=== PATIENT | female | born 1990 | race Caucasian/White ===

== ENCOUNTER → 2019-04-23 | Outpatient (CLI) | payer OTHER ==
--- NOTE | 2019-04-23 13:00 | Diagnostic Imaging Report ---
INDICATION: survey. TECHNIQUE: Multiple real-time grayscale images were obtained over the gravid uterus. COMPARISON: None FINDINGS: There is a single live fetus in a cephalic presentation. heart rate was recorded at 135 bpm. Placenta is anterior. Amniotic fluid index is normal at 15.5 cm. Cervical length is approximately 4.0 cm. survey shows kidneys, bladder and stomach to be unremarkable. brain is unremarkable. There is a four-chamber heart. There is a three-vessel cord with normal insertion. spine is unremarkable. Biometrical measurements are as follows: Biparietal 4.87 cm, age 20 weeks 6 days. Head circumference 17.70 cm, age 20 weeks 2 days. Abdominal circumference 15.57 cm, age 20 weeks 6 days. Femur length 3.35 cm, age 20 weeks 4 days. Sonographic estimate age: 20 weeks 5 days. Sonographic estimated date of delivery: 09/05/19. Estimated Weight: 364 gm (+/- 53 gm). LMP percentile: 78%. heart rate: 135 beats per minute. number: 1 of 1. IMPRESSION: Single live IUP 20 weeks 5 days gestational age. Estimated date of confinement sonographically is 09/05/2019. Dictated by: Dictated on workstation # [id number]
== END ==
LOC: RAD 10:00
PROVIDERS: ATTEND Obstetrics & Gynecology
DX: Z34.82 Encounter for supervision of other normal pregnancy, second trimester (principal); Z3A.20 20 weeks gestation of pregnancy
CPT/HCPCS: 76805

== ENCOUNTER 2019-08-30 12:40 | Inpatient (IN) | payer OTHER ==
[~2019-08-30] VITALS: Ht 182.9 cm; Wt 88.0 kg
[2019-08-30] VITALS (10 sets, daily range): BP systolic 103–132; BP diastolic 59–85
--- NOTE | 2019-08-30 12:45 | NUR ---
CONNER RUSSO presented to unit via ambulatory from ED, accompanied by , with c/o LABOR. CONNER RUSSO weighed, gowned, voided, and to bed. EFHM and TOCO applied, VS taken. CONNER RUSSO oriented to bed controls, call light, TV, heat, and A/C controls.
--- OUTSIDE RECORDS SUMMARY | 2019-08-30 12:46 | XMS REPORT | Continuity of Care Document ---
Author Organization Unknown Address Unknown Phone Unavailable Allergies There is no data. Medications There is no data. Problems Date Dx Coded Attending Type Code Diagnosis Diagnosed By 04/24/2019 MEIR LEE DO, Ot Z34.82 ENCOUNTER FOR SUPRVSN OF NORMAL PREGNANC 04/24/2019 MEIR LEE DO Ot Z3A.20 20 WEEKS GESTATION OF 06/08/2019 MEIR LEE DO, Ot Z34.82 ENCOUNTER FOR SUPRVSN OF NORMAL PREGNANC 06/08/2019 MEIR LEE DO, Ot Z3A.20 20 WEEKS GESTATION OF Procedures There is no data. Results There is no data. Encounters ACCT No. Visit Date/Time Discharge Status Pt. Type Provider Facility Loc./Unit Complaint [id number] 04/23/2019 10:00:00 019 23:59:59 CLS Outpatient MEIR LEE DO [facility] RAD
[2019-08-30] MEDS ORDERED: D5 LR IV SOLUTION 1,000 ML IV SCH (12:51)
[2019-08-30] MEDS ORDERED: MINERAL OIL CONCENTRATE 99.9% 15 ML UDC TOP PRN (13:00)
[2019-08-30 13:42] LABS: BASOPHILS % (AUTO) 0 % (0-10); EOSINOPHILS % (AUTO) 1 % (0-10); HEMATOCRIT 32 % (35-52); HEMOGLOBIN 10.6 G/DL (11.5-16.0); LYMPHOCYTES # (AUTO) 1.8 X 10^3 (1.0-4.0); LYMPHOCYTES % (AUTO) 20 % (12-44); MEAN CORPUSCULAR HEMOGLOBIN 31 PG (25-34); MEAN CORPUSCULAR HGB CONC 34 G/DL (32-36); MEAN CORPUSCULAR VOLUME 91 FL (80-99); MEAN PLATELET VOLUME 10.2 FL (7.4-10.4); MONOCYTES # (AUTO) 0.5 X 10^3 (0.0-1.0); MONOCYTES % (AUTO) 5 % (0-12); NEUTROPHILS # (AUTO) 6.4 X 10^3 (1.8-7.8); NEUTROPHILS % (AUTO) 74 % (42-75); PLATELET COUNT 224 10^3/uL (130-400); RED CELL DISTRIBUTION WIDTH 13.3 % (10.0-14.5); WHITE BLOOD COUNT 8.7 10^3/uL (4.3-11.0)
[2019-08-30] MEDS ORDERED: CATHETER FLUSH 10 ML SYR IV SCH ×2 (14:00→22:00)
[2019-08-30] MEDS ORDERED: OXYTOCIN PRE-MIX DRIP 500 ML IV ONE ×2 (14:13→16:40)
--- NOTE | 2019-08-30 14:36 | History & Physical-OB ---
OB - Chief Complaint & HPI Date/Time Date of Admission: Date of Admission: Aug 30, 2019 at 12:40 Date seen by a Provider: Aug 30, 2019 Time Seen by a Provider: 14:30 Chief Complaint/History Hx : 5 Hx Para: 3 Expected Date of Delivery: Sep 10, 2019 Gestational Age in Weeks: 38 Gestational Age in Days: 3 Other reason for admission: Advanced cervical dilatation of 6-7 cm in office Admission Nurse Assessment Rev: Yes History of Labs A pos Antibody neg RI RPR NR HBsAg NR HIV NR GC neg GBS neg Allergies and Home Medications Allergies Coded Allergies: No Known Drug Allergies (Unverified , 08/30/19) Patient Home Medication List Home Medication List Reviewed: Yes OB - History Hx of Present Care: Yes Ultrasounds: Normal mid trimester US Obstetrical Complications: None Medical Complications: None Delivery History Adverse Rxn to Tranfusion: No Patient Past Medical History n/a Social History/Family History Recent Infectious Disease Expo: No Alcohol Use: Denies Use Recreational Drug Use: No OB - Admission Exam Physical Exam HEENT: NCAT Heart: Rhythm Normal Lungs: Clear Abdomen: Gravid Extremities: Normal Reflexes: Normal Cervical Dilatation: 6cm Effacement: 75% Station: -1 Membranes: Intact Heart Rate: 150's Accelerations: Accelerations Present Decelerations: No Decelerations Short Term Variability: Present Home Appliances Mechanic Variability: Average (6-25) Contractions on Admission: 6-10 Minutes Apart Labs Laboratory Tests Test 08/30/19 13:30 Range/Units White Blood Count 8.7 4.3-11.0 10^3/uL Red Blood Count 3.47 L 4.35-5.85 10^6/uL Hemoglobin 10.6 L 11.5-16.0 G/DL Hematocrit 32 L 35-52 % Mean Corpuscular Volume 91 80-99 FL Mean Corpuscular Hemoglobin 31 25-34 PG Mean Corpuscular Hemoglobin Concent 34 32-36 G/DL Red Cell Distribution Width 13.3 10.0-14.5 % Platelet Count 224 130-400 10^3/uL Mean Platelet Volume 10.2 7.4-10.4 FL Neutrophils (%) (Auto) 74 42-75 % Lymphocytes (%) (Auto) 20 12-44 % Monocytes (%) (Auto) 5 0-12 % Eosinophils (%) (Auto) 1 0-10 % Basophils (%) (Auto) 0 0-10 % Neutrophils # (Auto) 6.4 1.8-7.8 X 10^3 Lymphocytes # (Auto) 1.8 1.0-4.0 X 10^3 Monocytes # (Auto) 0.5 0.0-1.0 X 10^3 Eosinophils # (Auto) 0.0 0.0-0.3 10^3/uL Basophils # (Auto) 0.0 0.0-0.1 10^3/uL OB - Assessment/Plan/Diagnosis Assessment Assessment: active labor Admission Dx 29 yo ,1,0,3 @ 38 weeks Advanced cervical dilatation Hx of precipatous delivery Admission Status: Inpatient Order (span 2 midnights) Reason for Inpatient Admission: Labor at term Plan Plan: Expectant Management (AROM) MEIR LEE DO Aug 30, 2019 14:36
[2019-08-30] MEDS: OXYTOCIN PRE-MIX DRIP 500 ML IV SCH ×3 (16:15→16:50)
[2019-08-30] MEDS ORDERED: TETANUS,DIPTH,PERTUSS P/F (BOOSTRIX) 0.5 ML VIAL IM ONE (16:30)
[2019-08-30] MEDS ORDERED: MEASLES,MUMPS,RUBELLA 1 EA INJ SQ ONE (16:30)
[2019-08-30] MEDS ORDERED: WITCH HAZEL(TUCKS) 40 EA JAR TOP PRN (16:30)
[2019-08-30] MEDS ORDERED: BENZOCAINE/MENTHOL (DERMOPLAST) 60 ML CAN TP PRN (16:30)
--- NOTE | 2019-08-30 16:31 | OB Labor & Delivery Record ---
L&D History Date of Service Date of Service: Aug 30, 2019 History Expected Date of Delivery: Sep 10, 2019 Gestational Age in Weeks: 38 Hx : 5 Hx Para: 3 Complications Events: Routine care Operative Indications (Cesarea: N/A-Vaginal Delivery Intrapartal Events: None L&D Stage1 Stage One Onset of Labor - Date: Aug 30, 2019 Monitors and Tracing Monitor Mode: External Heart Rate: 155 Monitor Accelerations: Uniform Monitor Decelerations: None Station: -1 Soc Analyst Variability: Average (6-10) Short Term Variability: Present Presentation: Vertex Vital Signs VS - Last 72 Hours, by Label 08/30/19 08/30/19 13:10 14:46 Temp 36.6 36.6 Pulse 109 109 Resp 16 16 B/P (MAP) 109/76 (87) Pulse Ox 99 99 O2 Delivery Room Air Room Air Rupture of Membranes Spontaneous Ruture of Membrane: No Amniotic Membrane Rupture Time: 1400 Amniotic Membrane Fluid Desc.: Clear Vaginal Bleeding Description: Normal Show (AROM performed patient at 6 cm and progressed with no augmentation to complete and +2 station) Progress/Notes AROM performed and no other augmentation done L&D Stage2 Stage Two Stage II Date: Aug 30, 2019 Monitors and Tracing Monitor Mode: External Heart Rate: 155 Monitor Decelerations: Variable Skilled Nursing Variability: Average (6-10) Short Term Variability: Present Position: Right Occiput Anterior Presentation: Vertex Cord Descript/Complications Cord Vessel Description: 3 Vessels Delivery Type Infant Delivery Method: Spontaneous Vaginal Anterior Shoulder: Right Episiotomy/Perineal Laceration Laceraction(s)/Extensions: No Condition of Infant Delivery 1 minute Comment: 8 5 minute Comment: 9 Notes Live male weight 9lbs 10 oz Condition of Condition of Infant: Living Exam: No Observed Abnormalities Resuscitation Resuscitation: N/A - Spontaneous Resp L&D Stage3 Stage Three Stage III Date: Aug 30, 2019 Pictocin Pitocin Administration Comment: 30 mu wide open at delivery of placenta Placenta Delivery Placenta Delivery: Spontaneous Delivery Summary Summary Estimated blood loss (mL): 250 Attending at delivery: Meir Lee DO Condition of Delivery Examined: Cervix Examined, Uterus Explored Post Hemorrhage: No Condition of Mother stable Condition of (s) stable MEIR LEE DO Aug 30, 2019 16:31
[2019-08-30] MEDS ORDERED: IBUPROFEN 600 MG (MOTRIN) TAB PO ONE (16:40)
[2019-08-30] MEDS: IBUPROFEN 600 MG (MOTRIN) TAB PO SCH (16:50)
--- NOTE | 2019-08-30 17:45 | NUR ---
1625: Recovery period begins at this time. Fundus firm, midline, 2 below umbilicus, scant bleeding. Pt denies pain. Call light within reach. remains at bedside. FOB holding . 1640: Fundus firm, midline, 2 below umbilicus, light bleeding. Pt denies pain. Call light within reach. Mother infant at this time. 1655: Fundus firm, midline, 2 below umbilicus, light bleeding. Pt denies pain. Call light within reach. Mother at this time. 1710: Fundus firm, midline, 2 below umbilicus, light/moderate bleeding. Pt denies pain. Call light within reach. Mother infant at this time. 1725: Fundus firm, midline, 2 below umbilicus, light bleeding. Pt denies pain. Call light within reach. Mother holding . 1745: Fundus firm, midline, 2 below umbilicus, light bleeding. Pt denies pain. Call light within reach. Mother holding infant. pericare by this RN. Pt transferred to room #312. transferred in crib.
[2019-08-30] MEDS ORDERED: IBUPROFEN 600 MG (MOTRIN) TAB PO SCH (18:00)
--- NOTE | 2019-08-30 19:18 | NUR ---
report given to janice larson
[2019-08-30] MEDS: DOCUSATE SODIUM 100 MG (COLACE) CAP PO SCH (23:36)
[2019-08-30] MEDS: ACETAMINOPHEN 500 MG TAB (TYLENOL) PO SCH (23:36)
[2019-08-31 05:35] VITALS: BP 112/72
[2019-08-31] MEDS: IBUPROFEN 600 MG (MOTRIN) TAB PO SCH ×3 (05:39→18:11)
[2019-08-31] MEDS: ACETAMINOPHEN 500 MG TAB (TYLENOL) PO SCH ×2 (05:39→12:00)
[2019-08-31 06:43] LABS: BASOPHILS % (AUTO) 0 % (0-10); EOSINOPHILS # (AUTO) 0.1 10^3/uL (0.0-0.3); EOSINOPHILS % (AUTO) 1 % (0-10); HEMATOCRIT 29 % (35-52); HEMOGLOBIN 9.8 G/DL (11.5-16.0); LYMPHOCYTES # (AUTO) 1.7 X 10^3 (1.0-4.0); LYMPHOCYTES % (AUTO) 23 % (12-44); MEAN CORPUSCULAR HEMOGLOBIN 31 PG (25-34); MEAN CORPUSCULAR HGB CONC 33 G/DL (32-36); MEAN CORPUSCULAR VOLUME 92 FL (80-99); MEAN PLATELET VOLUME 10.3 FL (7.4-10.4); MONOCYTES # (AUTO) 0.6 X 10^3 (0.0-1.0); MONOCYTES % (AUTO) 8 % (0-12); NEUTROPHILS # (AUTO) 4.9 X 10^3 (1.8-7.8); NEUTROPHILS % (AUTO) 67 % (42-75); PLATELET COUNT 178 10^3/uL (130-400); WHITE BLOOD COUNT 7.3 10^3/uL (4.3-11.0)
--- NOTE | 2019-08-31 07:23 | Postpartum Progress Note ---
Note Note Day # 1 Subjective: Patient is without complaints. Ambulating, voiding. Tolerating a regular diet without nausea or vomiting. Normal lochia. Pain is well controlled with oral pain medications. Objective: Physical Exam: General - Alert and oriented, no apparent distress Abdomen - Soft, appropriately tender to palpation, non-distended, fundus firm at umbilicus Extremities - no edema, negative Govind's bilaterally Assessment: PPD 1 NVD Acute blood loss Plan: Routine care. Encourage breast feeding. Encourage ambulation. Ferrous sulfate supplementation. Plan for discharge today. Vitals - Labs Vital Signs - I&O Vital Signs Date Time Temp Pulse Resp B/P (MAP) Pulse Ox O2 Delivery O2 Flow Rate FiO2 08/31/19 05:35 36.3 67 18 112/72 (85) 98 08/30/19 23:30 37.0 60 18 130/83 (99) 100 08/30/19 20:30 36.8 76 18 123/75 (91) 98 08/30/19 18:00 36.8 77 16 103/59 (74) 100 Room Air 08/30/19 17:26 36.7 83 123/79 (94) 100 Room Air 08/30/19 17:11 78 129/80 (96) 100 Room Air 08/30/19 16:56 75 123/77 (92) 100 Room Air 08/30/19 16:41 75 132/85 (101) 100 Room Air 08/30/19 16:26 73 16 122/76 (91) 100 Room Air 08/30/19 14:46 36.6 109 16 99 Room Air 08/30/19 13:10 36.6 109 16 109/76 (87) 99 Room Air I & O 08/31/19 07:00 Intake Total 1500 ml Balance 1500 ml Labs Laboratory Tests 08/30/19 13:30: White Blood Count 8.7, Red Blood Count 3.47L, Hemoglobin 10.6L, Hematocrit 32L, Mean Corpuscular Volume 91, Mean Corpuscular Hemoglobin 31, Mean Corpuscular Hemoglobin Concent 34, Red Cell Distribution Width 13.3, Platelet Count 224, Mean Platelet Volume 10.2, Neutrophils (%) (Auto) 74, Lymphocytes (%) (Auto) 20, Monocytes (%) (Auto) 5, Eosinophils (%) (Auto) 1, Basophils (%) (Auto) 0, Neutrophils # (Auto) 6.4, Lymphocytes # (Auto) 1.8, Monocytes # (Auto) 0.5, Eosinophils # (Auto) 0.0, Basophils # (Auto) 0.0 08/31/19 06:10: White Blood Count 7.3, Red Blood Count 3.18L, Hemoglobin 9.8L, Hematocrit 29L, Mean Corpuscular Volume 92, Mean Corpuscular Hemoglobin 31, Mean Corpuscular Hemoglobin Concent 33, Red Cell Distribution Width 13.0, Platelet Count 178, Mean Platelet Volume 10.3, Neutrophils (%) (Auto) 67, Lymphocytes (%) (Auto) 23, Monocytes (%) (Auto) 8, Eosinophils (%) (Auto) 1, Basophils (%) (Auto) 0, Neutrophils # (Auto) 4.9, Lymphocytes # (Auto) 1.7, Monocytes # (Auto) 0.6, Eosinophils # (Auto) 0.1, Basophils # (Auto) 0.0 MEIR LEE DO Aug 31, 2019 07:23
[2019-08-31] MEDS ORDERED: FERR325T18 PO (07:25)
[2019-08-31] MEDS ORDERED: ACET-93 PO (07:25)
[2019-08-31] MEDS ORDERED: DCS100C PO (07:25)
[2019-08-31] MEDS ORDERED: IBUP-844 PO (07:25)
--- NOTE | 2019-08-31 07:26 | Discharge Inst-Women's Service ---
Discharge Inst-Women's Serv Depart Medication/Instructions New, Converted or Re-Newed RX: RX on Chart Final Diagnosis PPD 1 NVD Problems Reviewed?: Yes Consults/Follow Up Additional Follow Up: Yes Orders/Referrals Dr. Lee in 6 weeks Activity Activity: Activity as Tolerated Driving Instructions: No Driving for 1 Week NO SMOKING: NO SMOKING Nothing Inside Vagina: No Douching, No [place], No Tampons Diet Discharge Diet: No Restrictions Symptoms to Report to : Bleeding Excessive, Pain Increased, Fever Over 101 Degrees F, Vaginal Bleeding Increase, Questions/Concerns For Any Problems or Questions: Contact Your Physician MEIR LEE DO Aug 31, 2019 07:26
[2019-08-31] MEDS: FERROUS SULF 325 MG (IRON) TAB PO SCH (07:41)
[2019-08-31] MEDS: PRENATAL VITAMIN 1 EA TAB PO SCH (07:42)
[2019-08-31] MEDS: DOCUSATE SODIUM 100 MG (COLACE) CAP PO SCH ×2 (09:20→21:30)
[2019-08-31 09:30] VITALS: BP 119/74
[2019-08-31 14:00] VITALS: BP 120/76
--- NOTE | 2019-08-31 14:26 | NUR ---
REPORT GIVEN TO SANTINO NOLEN
--- NOTE | 2019-08-31 17:06 | NUR ---
D/T current policy in place that pt and visitor may not leave unit, pt unable to curing pickling packer prescriptions if boardered. Dr. Esquivel called and notified, OK to keep as inpatient overnight, but will not round in AM.
[2019-08-31 18:09] VITALS: BP 115/73
--- NOTE | 2019-08-31 19:05 | NUR ---
REPORT RECEIVED AND CARES RESUMED BY THIS NURSE.
[2019-08-31 20:25] VITALS: BP 136/78
--- NOTE | 2019-08-31 20:25 | NUR ---
INITIAL SHIFT ASSESSMENT DONE. VSS. PT DENIES ANY PAIN, C/O'S, OR NEEDS.
--- NOTE | 2019-08-31 22:15 | NUR ---
PT PREPARING TO FEED . DENIES ANY NEEDS.
--- NOTE | 2019-09-01 | NUR ---
PT CONT TO TRY TO SOOTHE FUSSY INFANT. DENIES ANY NEEDS.
--- NOTE | 2019-09-01 01:40 | NUR ---
PT RESTING SOUNDLY. SLEEPING IN OPEN CRIB AT BEDSIDE. NO S/S OF DISTRESS OR DISCOMFORT NOTED.
--- NOTE | 2019-09-01 03:00 | NUR ---
PT CONT TO REST SOUNDLY. NOT AWAKENED AT THIS TIME.
[2019-09-01] MEDS: IBUPROFEN 600 MG (MOTRIN) TAB PO SCH ×2 (03:55→10:05)
--- NOTE | 2019-09-01 03:55 | NUR ---
PT AWAKENED SO THAT MAY BE TAKEN TO [facility] FOR HS CARES. IBUPROFEN ADMINISTERED. VSS.
--- NOTE | 2019-09-01 04:20 | NUR ---
INFANT RETURNED TO MOM'S ROOM IN STABLE CONDITION. MOM WILL FEED.
[2019-09-01 10:04] VITALS: BP 119/75
[2019-09-01] MEDS: FERROUS SULF 325 MG (IRON) TAB PO SCH (10:05)
[2019-09-01] MEDS: PRENATAL VITAMIN 1 EA TAB PO SCH (10:05)
--- NOTE | 2019-09-01 11:10 | NUR ---
Discharge instructions explained, signed and copy to patient. pt verbalized understanding of instructions and denied questions. Prescriptions given and pt denies questions regarding medications.
--- NOTE | 2019-09-01 12:20 | NUR ---
Discharged to home. Ambulates self downstairs to private vehicle with belongings in hand. Accompanied by staff and .
== END 2019-09-01 12:20 | disposition home or self-care (01) | DRG 806 ==
LOC: LDRP 12:40
PROVIDERS: ADMIT Obstetrics & Gynecology; ATTEND Obstetrics & Gynecology
PROC: 10E0XZZ Delivery of Products of Conception, External Approach (ICD-10-PCS; principal; 2019-08-30)
DX: O90.81 Anemia of the puerperium (principal); D62 Acute posthemorrhagic anemia; Z37.0 Single live birth; Z3A.38 38 weeks gestation of pregnancy; Z87.59 Personal history of other complications of pregnancy, childbirth and the puerperium
CPT/HCPCS: 36415; 85025; 86850; 86900; 86901

== ENCOUNTER → 2022-10-05 | Outpatient (CLI) | payer OTHER ==
[~2022-10-05] MED LIST: ACET-93 PO; DOCU-239 PO; FERR325T18 PO; IBUP-844 PO
--- NOTE | 2022-10-05 12:14 | Diagnostic Imaging Report ---
INDICATION: survey. TECHNIQUE: Multiple real-time grayscale images were obtained over the gravid uterus. COMPARISON: None. FINDINGS: There is a single live fetus in a cephalic presentation. heart rate was recorded at 144 BPM. Placenta is anterior. No previa is detected. Amniotic fluid index is 14.4 cm. Cervical length is 4.5 cm. survey demonstrates kidneys, bladder and stomach to be unremarkable. brain is unremarkable. There is a four-chamber heart. There is a three-vessel cord with normal insertion. spine is unremarkable. Biometrical measurements are as follows: Biparietal 4.56 cm, age 19 weeks 6 days. Head circumference 16.61 cm, age 19 weeks 3 days. Abdominal circumference 13.37 cm, age 18 weeks 6 days. Femur length 3.05 cm, age 19 weeks 4 days. Sonographic estimate age: 19 weeks 3 days. Sonographic estimated date of delivery: 02/26/2023. Estimated Weight: 278 gm (+/- 41 gm). LMP percentile: 73%. heart rate: 144 beats per minute. number: 1 of 1. IMPRESSION: Single live IUP at 19 weeks 3 days gestational age with an estimated date of confinement sonographically of 02/26/2023. Dictated by: Dictated on workstation # [id number]
== END ==
LOC: RAD 09:36
PROVIDERS: ATTEND Nurse Practitioner Women's Health
DX: Z34.02 Encounter for supervision of normal first pregnancy, second trimester (principal); Z3A.19 19 weeks gestation of pregnancy
CPT/HCPCS: 76805

== ENCOUNTER 2023-02-27 22:51 | Inpatient (IN) | payer BC ==
[~2023-02-27] VITALS: Ht 182.9 cm; Wt 88.9 kg
[2023-02-27] MEDS ORDERED: MINERAL OIL 30 ML UDC TOP PRN (23:00)
[2023-02-27] MEDS ORDERED: LACTATED RINGERS 1,000 ML 500 ML IV PRN (23:00)
[2023-02-27] MEDS ORDERED: D5 LR 1,000 ML IV SOLN 1,000 ML IV SCH (23:00)
[2023-02-27 23:04] VITALS: BP 130/82
[2023-02-27 23:29] LABS: BASOPHILS % (AUTO) 0 % (0-10); EOSINOPHILS # (AUTO) 0.1 10^3/uL (0.0-0.3); EOSINOPHILS % (AUTO) 1 % (0-10); HEMATOCRIT 33 % (35-52); HEMOGLOBIN 11.4 g/dL (11.5-16.0); LYMPHOCYTES # (AUTO) 1.6 10^3/uL (1.0-4.0); LYMPHOCYTES % (AUTO) 21 % (12-44); MEAN CORPUSCULAR HEMOGLOBIN 33 pg (25-34); MEAN CORPUSCULAR HGB CONC 35 g/dL (32-36); MEAN CORPUSCULAR VOLUME 95 fL (80-99); MEAN PLATELET VOLUME 10.4 fL (9.0-12.2); MONOCYTES # (AUTO) 0.6 10^3/uL (0.0-1.0); MONOCYTES % (AUTO) 8 % (0-12); NEUTROPHILS % (AUTO) 69 % (42-75); PLATELET COUNT 186 10^3/uL (130-400); WHITE BLOOD COUNT 7.3 10^3/uL (4.3-11.0)
[2023-02-28] VITALS (11 sets, daily range): BP systolic 112–137; BP diastolic 64–82
[2023-02-28] MEDS ORDERED: OXYTOCIN DRIP PRE-MIX 500 ML IV ONE ×2 (00:29→03:31)
[2023-02-28 00:41] LABS: BACTERIA,URINE NEGATIVE /HPF; BILIRUBIN,URINE NEGATIVE (NEGATIVE); CLARITY,URINE CLEAR; COLOR,URINE YELLOW; GLUCOSE, URINE (UA) NEGATIVE (NEGATIVE); KETONES,URINE NEGATIVE (NEGATIVE); LEUKOCYTE ESTERASE ,URINE NEGATIVE (NEGATIVE); NITRITE,URINE NEGATIVE (NEGATIVE); PH,URINE 5.5 (5-9); PROTEIN,URINE NEGATIVE (NEGATIVE); SQUAMOUS EPITHELIAL CELL,UR 0-2 /HPF; WBC,URINE RARE /HPF
[2023-02-28] MEDS: OXYTOCIN DRIP PRE-MIX 500 ML IV SCH ×2 (03:00→03:31)
[2023-02-28] MEDS ORDERED: Tetanus/Diphtheria/Pertussis (Acell) ADULT Vaccine 0.5 ML IM ONE (03:30)
[2023-02-28] MEDS ORDERED: MEASLES, MUMPS, RUBELLA VACCINE (MMR) SQ ONE (03:30)
[2023-02-28] MEDS ORDERED: WITCH HAZEL(TUCKS) 40 EA JAR TOP PRN (03:30)
[2023-02-28] MEDS ORDERED: BENZOCAINE/MENTHOL (DERMOPLAST) 56 ML CAN TP PRN (03:30)
[2023-02-28] MEDS: ACETAMINOPHEN 500 MG TABLET PO SCH ×2 (04:16→12:00)
[2023-02-28] MEDS: IBUPROFEN 600 MG TABLET PO SCH ×3 (04:16→18:02)
[2023-02-28] MEDS ORDERED: CATHETER FLUSH 10 ML SYR IV SCH ×2 (06:00)
--- NOTE | 2023-02-28 08:15 | History & Physical-OB ---
OB - Chief Complaint & HPI Date/Time Date of Admission: Date of Admission: Feb 27, 2023 at 22:55 Date seen by a Provider: Feb 28, 2023 Time Seen by a Provider: 03:00 Chief Complaint/History OB-Reason for Admission/Chief: Onset of Labor Hx : 6 Hx Para: 5 Expected Date of Delivery: Feb 28, 2023 Gestational Age in Weeks: 40 Gestational Age in Days: 0 Admission Nurse Assessment Rev: Yes History of Labs A pos Antibody neg RI RPR NR HBsAg NR HIV NR GC neg GBS neg Allergies and Home Medications Allergies Coded Allergies: No Known Drug Allergies (Unverified , 08/30/19) Patient Home Medication List Home Medication List Reviewed: Yes Acetaminophen (Acetaminophen) 500 Mg Tablet, 1,000 MG PO Q6HR Prescribed by: MEIR LEE on 08/31/19724 Docusate Sodium (Dok) 100 Mg Capsule, 100 MG PO BID PRN for CONSTIPATION-1ST LINE Prescribed by: MEIR LEE on 08/31/19724 Ferrous Sulfate (Ferrous Sulfate) 325 Mg Tablet, 325 MG PO DAILY@0800 Prescribed by: MEIR LEE on 08/31/19724 Ibuprofen (Ibu) 600 Mg Tablet, 600 MG PO Q6H Prescribed by: MEIR LEE on 08/31/19724 OB - History Hx of Present Care: Yes Ultrasounds: Normal mid trimester US Obstetrical Complications: None Medical Complications: None Delivery History Adverse Rxn to Tranfusion: No Patient Past Medical History n/a Immunizations Influenza Vaccine Up-to-Date: No; Not Current OB - Admission Exam Physical Exam Vitals: Vital Signs 02/28/23 06:00 Temp 36.5 Pulse 72 Resp 18 B/P (MAP) 116/64 (81) Pulse Ox 99 O2 Delivery Room Air HEENT: NCAT Heart: Rhythm Normal Lungs: Clear Abdomen: Gravid Extremities: Normal Reflexes: Normal Cervical Dilatation: 7cm Effacement: 100% Station: 0 Membranes: Ruptured Heart Rate: 130's Accelerations: Accelerations Present Decelerations: No Decelerations Short Term Variability: Present Assisted Variability: Absent (0-2) Contractions on Admission: 6-10 Minutes Apart Intensity: Moderate Labs Laboratory Tests Test 02/27/23 23:00 02/27/23 23:15 Range/Units Urine Color YELLOW Urine Clarity CLEAR Urine pH 5.5 5-9 Urine Specific [place] 1.015 L 1.016-1.022 Urine Protein NEGATIVE NEGATIVE Urine Glucose (UA) NEGATIVE NEGATIVE Urine Ketones NEGATIVE NEGATIVE Urine Nitrite NEGATIVE NEGATIVE Urine Bilirubin NEGATIVE NEGATIVE Urine Urobilinogen 0.2 < = 1.0 MG/DL Urine Leukocyte Esterase NEGATIVE NEGATIVE Urine RBC (Auto) TRACE H NEGATIVE Urine RBC 2-5 H /HPF Urine WBC RARE /HPF Urine Squamous Epithelial Cells 0-2 /HPF Urine Crystals NONE /LPF Urine Bacteria NEGATIVE /HPF Urine Casts NONE /LPF Urine Mucus NEGATIVE /LPF Urine Culture Indicated NO White Blood Count 7.3 4.3-11.0 10^3/uL Red Blood Count 3.47 L 3.80-5.11 10^6/uL Hemoglobin 11.4 L 11.5-16.0 g/dL Hematocrit 33 L 35-52 % Mean Corpuscular Volume 95 80-99 fL Mean Corpuscular Hemoglobin 33 25-34 pg Mean Corpuscular Hemoglobin Concent 35 32-36 g/dL Red Cell Distribution Width 13.4 10.0-14.5 % Platelet Count 186 130-400 10^3/uL Mean Platelet Volume 10.4 9.0-12.2 fL Immature Granulocyte % (Auto) 0 % Neutrophils (%) (Auto) 69 42-75 % Lymphocytes (%) (Auto) 21 12-44 % Monocytes (%) (Auto) 8 0-12 % Eosinophils (%) (Auto) 1 0-10 % Basophils (%) (Auto) 0 0-10 % Neutrophils # (Auto) 5.0 1.8-7.8 10^3/uL Lymphocytes # (Auto) 1.6 1.0-4.0 10^3/uL Monocytes # (Auto) 0.6 0.0-1.0 10^3/uL Eosinophils # (Auto) 0.1 0.0-0.3 10^3/uL Basophils # (Auto) 0.0 0.0-0.1 10^3/uL Immature Granulocyte # (Auto) 0.0 0.0-0.1 10^3/uL OB - Assessment/Plan/Diagnosis Assessment Assessment: active labor Admission Dx 33 yo @ 40 weeks SROM Active labor GBS neg Admission Status: Inpatient Order (span 2 midnights) Reason for Inpatient Admission: Active labor at 40 weeks Plan Plan: Expectant Management MEIR LEE DO Feb 28, 2023 08:15
--- NOTE | 2023-02-28 08:18 | OB Labor & Delivery Record ---
L&D History Date of Service Date of Service: Feb 28, 2023 History Expected Date of Delivery: Feb 28, 2023 Gestational Age in Weeks: 40 Hx : 6 Hx Para: 5 Complications Events: Routine care Operative Indications (Cesarea: N/A-Vaginal Delivery Intrapartal Events: None L&D Stage1 Stage One Onset of Labor - Date: Feb 28, 2023 Monitors and Tracing Monitor Mode: External Heart Rate: 130 Monitor Accelerations: Uniform Monitor Decelerations: Early Station: +1 Gym Instructor Variability: Average (6-10) Short Term Variability: Present Presentation: Vertex Vital Signs VS - Last 72 Hours, by Label 02/27/23 02/27/23 02/28/23 02/28/23 23:04 23:04 01:36 03:06 Temp 37.1 37.1 36.9 Pulse 81 81 78 Resp 18 18 18 B/P (MAP) 130/82 (98) 113/72 (86) Pulse Ox 99 99 O2 Delivery Room Air Room Air Room Air 02/28/23 02/28/23 02/28/23 02/28/23 03:19 03:34 03:49 04:04 Pulse 71 71 63 70 Resp 18 18 18 18 B/P (MAP) 123/77 (92) 128/80 (96) 114/73 (87) 137/69 (91) O2 Delivery Room Air Room Air Room Air Room Air 02/28/23 02/28/23 04:19 06:00 Temp 37.1 36.5 Pulse 68 72 Resp 18 18 B/P (MAP) 118/74 (89) 116/64 (81) Pulse Ox 97 99 O2 Delivery Room Air Room Air Rupture of Membranes Spontaneous Ruture of Membrane: Yes Amniotic Membrane Rupture Time: 2129 Amniotic Membrane Fluid Desc.: Clear Vaginal Bleeding Description: Normal Show Progress/Notes Patient presented with SROM 7 cm dialated. No augmentation or analgesia requested by the patient and she rapidly progressed to complete and + 2 station L&D Stage2 Stage Two Stage II Date: Feb 28, 2023 Monitors and Tracing Monitor Mode: External Heart Rate: 130 Monitor Decelerations: Variable Gym Instructor Variability: Average (6-10) Short Term Variability: Present Position: Right Occiput Anterior Presentation: Vertex Signs of Distress by FHT Signs of Distress tight double nuchal that had to be clamped and cut at the perineum. Cord Descript/Complications Cord Vessel Description: 3 Vessels Delivery Type Infant Delivery Method: Spontaneous Vaginal Anterior Shoulder: Right Episiotomy/Perineal Laceration Laceraction(s)/Extensions: No Condition of Delivery 1 minute Comment: 8 5 minute Comment: 8 Notes Live female weight 8lbs 4 oz Condition of Infant Condition of : Living Exam: No Observed Abnormalities Resuscitation Resuscitation: N/A - Spontaneous Resp L&D Stage3 Stage Three Stage III Date: Feb 28, 2023 Pictocin Pitocin Administration Comment: 30 mu wide open after delivery of placenta Placenta Delivery Placenta Delivery: Spontaneous Delivery Summary Summary Estimated blood loss (mL): 250 Attending at delivery: Meir Lee DO Condition of Delivery Examined: Cervix Examined, Uterus Explored Post Hemorrhage: No Condition of Mother stable Condition of (s) stable MEIR LEE DO Feb 28, 2023 08:18
--- NOTE | 2023-02-28 08:19 | Discharge Inst-Women's Service ---
Discharge Inst-Women's Serv Depart Medication/Instructions New, Converted or Re-Newed RX: Transmitted to Pharmacy Final Diagnosis PPD 1 NVD Problems Reviewed?: Yes Consults/Follow Up Additional Follow Up: Yes Orders/Referrals Dr. Lee in 6 weeks Activity Activity: Activity as Tolerated Driving Instructions: No Driving for 1 Week NO SMOKING: NO SMOKING Nothing Inside Vagina: No Douching, No [place], No Tampons Diet Discharge Diet: No Restrictions Symptoms to Report to : Bleeding Excessive, Pain Increased, Fever Over 101 Degrees F, Vaginal Bleeding Increase, Questions/Concerns For Any Problems or Questions: Contact Your Physician MEIR LEE DO Feb 28, 2023 08:19
[2023-02-28] MEDS ORDERED: ACET-93 PO (08:20)
[2023-02-28] MEDS ORDERED: IBUP-844 PO (08:20)
[2023-02-28] MEDS ORDERED: DOCU100C37 PO (08:20)
[2023-02-28] MEDS: DOCUSATE SODIUM 100 MG CAPSULE PO SCH ×2 (10:15→21:40)
[2023-03-01 02:35] VITALS: BP 126/83
[2023-03-01 03:32] LABS: BASOPHILS % (AUTO) 1 % (0-10); EOSINOPHILS # (AUTO) 0.1 10^3/uL (0.0-0.3); EOSINOPHILS % (AUTO) 2 % (0-10); HEMATOCRIT 32 % (35-52); HEMOGLOBIN 11.1 g/dL (11.5-16.0); LYMPHOCYTES # (AUTO) 1.9 10^3/uL (1.0-4.0); LYMPHOCYTES % (AUTO) 29 % (12-44); MEAN CORPUSCULAR HEMOGLOBIN 33 pg (25-34); MEAN CORPUSCULAR HGB CONC 34 g/dL (32-36); MEAN CORPUSCULAR VOLUME 96 fL (80-99); MEAN PLATELET VOLUME 10.4 fL (9.0-12.2); MONOCYTES # (AUTO) 0.6 10^3/uL (0.0-1.0); MONOCYTES % (AUTO) 9 % (0-12); NEUTROPHILS % (AUTO) 60 % (42-75); PLATELET COUNT 166 10^3/uL (130-400); WHITE BLOOD COUNT 6.7 10^3/uL (4.3-11.0)
--- NOTE | 2023-03-01 07:30 | Postpartum Progress Note ---
Note Note Day # 1 Subjective: Patient is without complaints. Ambulating, voiding. Tolerating a regular diet without nausea or vomiting. Normal lochia. Pain is well controlled with oral pain medications. Objective: Physical Exam: General - Alert and oriented, no apparent distress Abdomen - Soft, appropriately tender to palpation, non-distended, fundus firm at umbilicus Extremities - no edema, negative Govind's bilaterally Assessment: PPD 1 NVD Plan: Routine care. Encourage breast feeding. Encourage ambulation. Ferrous sulfate supplementation. Plan for discharge today Vitals - Labs Vital Signs - I&O Vital Signs Date Time Temp Pulse Resp B/P (MAP) Pulse Ox O2 Delivery O2 Flow Rate FiO2 03/01/23 02:35 36.0 77 18 126/83 (97) 99 Room Air 02/28/23 21:35 36.6 70 18 112/82 (92) 97 Room Air 02/28/23 18:00 37.1 69 18 120/76 (91) 98 Room Air 02/28/23 14:20 36.8 74 18 121/78 (92) 98 Room Air 02/28/23 10:11 37.4 83 18 127/78 (94) 97 Room Air Labs Laboratory Tests 03/01/23 03:23: White Blood Count 6.7, Red Blood Count 3.37L, Hemoglobin 11.1L, Hematocrit 32L, Mean Corpuscular Volume 96, Mean Corpuscular Hemoglobin 33, Mean Corpuscular Hemoglobin Concent 34, Red Cell Distribution Width 13.8, Platelet Count 166, Mean Platelet Volume 10.4, Immature Granulocyte % (Auto) 1, Neutrophils (%) (Auto) 60, Lymphocytes (%) (Auto) 29, Monocytes (%) (Auto) 9, Eosinophils (%) (Auto) 2, Basophils (%) (Auto) 1, Neutrophils # (Auto) 4.0, Lymphocytes # (Auto) 1.9, Monocytes # (Auto) 0.6, Eosinophils # (Auto) 0.1, Basophils # (Auto) 0.0, Immature Granulocyte # (Auto) 0.0 MEIR LEE DO Mar 01, 2023 07:30
[2023-03-01 08:30] VITALS: BP 126/81
== END 2023-03-01 10:34 | disposition home or self-care (01) | DRG 807 ==
LOC: WSo 22:51 → LDRP 22:51 → WSo 22:54 → LDRP 22:55
PROVIDERS: ADMIT Obstetrics & Gynecology; ATTEND Obstetrics & Gynecology
PROC: 10E0XZZ Delivery of Products of Conception, External Approach (ICD-10-PCS; principal; 2023-02-28)
DX: O69.81X0 Labor and delivery complicated by cord around neck, without compression, not applicable or unspecified (principal); Z37.0 Single live birth; Z3A.40 40 weeks gestation of pregnancy
CPT/HCPCS: 36415; 81000; 85025; 86850; 86900; 86901; 99213